=== PATIENT | female | born 1990 | race African-American/Black ===

== ENCOUNTER 2020-02-09 15:54 | Emergency (ER) | payer SELFPAY ==
[~2020-02-09] VITALS: Ht 167.6 cm; Wt 150.1 kg
[2020-02-09 16:16] LABS: COLLECTION METHOD CLEAN CATCH
[2020-02-09 16:22] LABS: MUCOUS Present /lpf; PH 6 (5-8); URINE APPEARANCE Cloudy; URINE BACTERIA None Seen /hpf; URINE BILIRUBIN Negative (NEGATIVE); URINE BLOOD 2+ (NEGATIVE); URINE COLOR Yellow; URINE GLUCOSE Negative (NEGATIVE); URINE KETONE Negative (NEGATIVE); URINE LEUKOCYTE ESTERASE 1+ (NEGATIVE); URINE NITRATE Negative (NEGATIVE); URINE PROTEIN(semi-quant) 2+ (NEGATIVE); URINE RBC >50 /hpf
[2020-02-09] MEDS ORDERED: CEFTIN500 MG PO (16:34)
[2020-02-09] MEDS ORDERED: PYRIDIUM200 M1 PO (16:34)
[2020-02-09 17:01] VITALS: BP 134/78; PULSE 74; TEMP 98
== END 2020-02-09 17:04 | disposition home or self-care (01) ==
LOC: COL.ER 15:54
PROVIDERS: Emergency Medicine
DX: N39.0 Urinary tract infection, site not specified (principal)